=== PATIENT | male | born 1990 | race African-American/Black ===

== ENCOUNTER 2021-12-30 06:02 | Emergency (ER) | payer OTHER ==
[2021-12-30 06:28] LABS: #Eosinphils 0.7 thou/uL (0.0-0.7); #Monocytes 0.4 thou/uL (0.11-0.59); #Neutrophils 2.4 thou/uL (1.40-6.50); %Basophils 0.7 % (0.0-1.0); %Eosinophils 12.8 % (0.0-10.0); %Lymphocytes 35.7 % (21.0-51.0); %Monocytes 7.1 % (0.0-10.0); %Neutrophils 43.8 % (42.0-75.0); Mean Corpuscular HGB CONC 32.6 g/dL (32.0-36.0); Mean Corpuscular Hemoglobin 31.4 pg (27.0-31.0); Mean Corpuscular Volume 96.5 fL (78.0-98.0); Mean Platelet Volume 7.8 fL (7.4-10.4); Platelet Count 211 thou/uL (130-400); RBC Distribution Width 11.7 % (11.5-14.5); Red Blood Cell (RBC) Count 5.08 mill/uL (4.70-6.10); White Blood Cell (WBC) Count 5.5 thou/uL (4.8-10.8)
[2021-12-30 06:51] LABS: ALT (SGPT) 19 U/L (8-55); AST (SGOT) 18 U/L (5-34); Albumin 4.5 g/dL (3.5-5.0); Alkaline Phosphatase 73 U/L (40-110); Anion Gap 13 mmol/L (10-20); BUN (Urea Nitrogen) 11 mg/dL (8.9-20.6); Bilirubin, Total 0.8 mg/dL (0.2-1.2); Calc. Creatinine Clearance 0 mL/min (70-130); Calcium 9.8 mg/dL (7.8-10.44); Carbon Dioxide 28 mmol/L (22-29); Chloride 105 mmol/L (98-107); Estimated GFR 72; Globulin 3.4 g/dL (2.4-3.5); Glucose 110 mg/dL (70-105); Protein, Total 7.9 g/dL (6.0-8.3); Sodium 142 mmol/L (136-145)
[2021-12-30 08:34] LABS: Bilirubin Negative (Negative); Blood, Urine Negative (Negative); Glucose, Urine (Dipstick) Normal (Negative); Ketone, Urine Negative (Negative); Leukocyte Negative Leu/uL (Negative); Nitrite Negative (Negative); Protein, Urine (Dipstick) Negative (Neg-Trace); Specific Gravity, Urine 1.017 (1.002-1.036); Urobilinogen Normal mg/dL (Less than 2); pH, Urine 7.5 (5.0-9.0)
[2021-12-30 08:36] LABS: Clarity Hazy (Clear)
[2021-12-30] MEDS ORDERED: Iopamidol-370 76% 500 ML 1 ML ONE (12:06)
== END 2021-12-30 10:47 | disposition home or self-care (01) ==
LOC: ERS 06:02
DX: R10.31 Right lower quadrant pain (principal); R10.33 Periumbilical pain
CPT/HCPCS: 74177; 80053; 81003; 83690; 85025; Q9967